=== PATIENT | female | born 1995 | race Two or more races ===

== ENCOUNTER 2018-11-04 09:53 | Emergency (ER) | payer OTHER ==
[2018-11-04] MEDS ORDERED: KETOROLAC TROMETHAMINE 60 MG/2 ML SDV IM ONE (11:11)
--- NOTE | 2018-11-04 11:18 | ER Document Report ---
HPI - HPI Patient complains to provider of: Low back pain Time Seen by Provider: 11/04/18 11:04 Onset: Yesterday Onset/Duration: Sudden, Persistent Quality of pain: Achy Severity: Severe Pain Level: 5 Context: This 23-year-old female presents emergency department with complaints of low back pain that started yesterday. She reports she was at the gym doing squats, when she felt something pop. She now has complaints of left-sided low back pain. Denies urinary bowel incontinence or retention. She denies paresthesia. Denies history of IV drug use or steroid use. Denies trauma. Reports it hurts more when she tries to stand to sitting position. Associated Symptoms: None Exacerbated by: Sitting, Standing, Movement Relieved by: Denies Similar symptoms previously: No Recently seen / treated by doctor: No - CONSTITUTIONAL Constitutional: DENIES: Fever, Chills - REPRODUCTIVE Reproductive: DENIES: : Past Medical History - General Information source: Patient Last Menstrual Period: just finished- denies - reports bc patch - Social History Smoking Status: Never Smoker Frequency of alcohol use: None Drug Abuse: None Occupation: stay at home mom Lives with: Family Family History: None Patient has suicidal ideation: No Patient has homicidal ideation: No - Medical History Medical History: Negative Renal/ Medical History: Denies: Hx Peritoneal Dialysis Surgical Hx: Negative - Immunizations Hx Diphtheria, Pertussis, Tetanus Vaccination: Yes - already received Vertical Provider Document - CONSTITUTIONAL Agree With Documented VS: Yes Exam Limitations: No Limitations General Appearance: WD/WN, Mild Distress - INFECTION CONTROL TRAVEL OUTSIDE OF THE [place] IN LAST 30 DAYS: No - HEENT HEENT: Atraumatic, Normocephalic - NECK Neck: Normal Inspection, Supple. negative: Lymphadenopathy-Left, Lymphadenopathy-Right - RESPIRATORY Respiratory: Breath Sounds Normal, No Respiratory Distress - CARDIOVASCULAR Cardiovascular: Regular Rate, Regular Rhythm - GI/ABDOMEN Gastrointestinal: Abdomen Soft, Abdomen Non-Tender - BACK Back: Normal Inspection - No obvious deformity good distal movement and s ensation no vertebral tenderness. Complains of left and right sided muscle pain upon palpation. Reports left is worse than right. No weakness goes from standing to sitting and sitting to standing very slowly. - MUSCULOSKELETAL/EXTREMETIES Musculoskeletal/Extremeties: PAULY WOODS - NEURO Level of Consciousness: Awake, Alert, Appropriate Motor/Sensory: No Motor Deficit - DERM Integumentary: Warm, Dry Course - Re-evaluation Re-evalutation: 11/04/18 11:34 23-year-old female with complaints of low back pain. Reports started hurting if she was doing squats at gym. She was instructed on muscle relaxers ibuprofen and Percocet for the acute pain. She was also instructed on the importance of follow-up with her primary care provider for referral to orthopedics as indicated. She verbalized understanding to all instructions. Low suspicion for any meningitis, fracture, expanding/ruptured AAA, cauda equina syndrome, epidural mass lesion/abscess, herniated disc causing severe spinal stenosis, or other systemic infection at this time. Patient is aware that this condition can change from initial presentation and that she needs monitor symptoms closely for any acute changes. Dictation of this chart was performed using voice recognition software; therefore, there may be some unintended grammatical errors. - Vital Signs Vital signs: Temp Pulse Resp BP Pulse Ox 98.8 F 125 H 19 141/93 H 96 11/04/18 09:58 11/04/18 09:58 11/04/18 09:58 11/04/18 09:58 11/04/18 09:58 Discharge - Discharge Clinical Impression: Low back pain Qualifiers: Chronicity: acute Back pain laterality: left Sciatica presence: without sciatica Qualified Code(s): M54.5 - Low back pain Condition: Stable Disposition: HOME, SELF-CARE Instructions: Use of [id number]-Gamgynv Ibuprofen ([facility]), Ice Packs ([facility]), Low Back Pain ([facility]), Muscle Relaxers ([facility]), Muscle Strain ([facility]), Oral Narcotic Medication ([facility]), Toradol Injection ([facility]) Additional Instructions: *You have been evaluated for back pain *Take medication as prescribed-take ibuprofen 800 mg every 8 hours. Take Per cocet for the acute pain. Take an [id number] stool softener to avoid constipation *Rest/Ice packs to low back-20 minutes on 20 minutes off *Follow up with a primary care provider for recheck within 1 week *Return to ED for worsening condition, changes, needs Monitor your blood pressure. Your blood pressure was elevated today. This may be because you were anxious, in pain or because you need medication. It is important to follow up with your primary care provider for full evaluation. Prescriptions: Cyclobenzaprine HCl [Flexeril 10 mg Tablet] 10 mg PO TID #15 tablet Oxycodone HCl/Acetaminophen [Percocet 5-325 mg Tablet] 1 tab PO ASDIR PRN #10 tablet PRN Reason: Forms: Elevated Blood Pressure Referrals: MARK PRETTY MD [ACTIVE STAFF] - Follow up as needed
[2018-11-04 12:11] VITALS: BP 146/76
== END 2018-11-04 12:12 | disposition home or self-care (01) ==
LOC: ER 09:53
DX: M79.18 Myalgia, other site (principal); Z79.3 Long term (current) use of hormonal contraceptives; M79.10 Myalgia, unspecified site
CPT/HCPCS: 99283; 96372; J1885

== ENCOUNTER 2019-01-30 02:53 | Emergency (ER) | payer OTHER ==
--- NOTE | 2019-01-30 04:10 | RADIOLOGY REPORT (SQ) ---
Left ankle three view on 01/30/2019 at 3:11 AM CLINICAL INDICATION: Rolled ankle, lateral ankle pain COMPARISON: None FINDINGS: Soft tissue swelling is noted around the lateral malleolus. Bone island is noted in the distal tibia. The ankle mortise is intact. Visualized joints are well aligned. There are no fractures. No other bony abnormality is noted. IMPRESSION: No acute abnormality.
[2019-01-30] MEDS ORDERED: IBUPROFEN 800 MG TABLET PO ONE (05:44)
--- NOTE | 2019-01-30 05:45 | ER Document Report ---
HPI - HPI Time Seen by Provider: 01/30/19 05:17 Pain Level: 4 Context: Patient is a 23-year-old female that comes to the emergency department for chief complaint of left ankle injury. 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 She inverted her ankle, she states that when she took her boot off it started hurting more and became swollen. She denies any other injuries. She denies , daily medications, or any other concerns. - CONSTITUTIONAL Constitutional: DENIES: Fever, Chills - REPRODUCTIVE LMP: 01/21 Reproductive: DENIES: : - DERM Skin Color: Normal Past Medical History - General Information source: Patient - Social History Smoking Status: Never Smoker Frequency of alcohol use: None Drug Abuse: None Lives with: Family Family History: None Patient has suicidal ideation: No Patient has homicidal ideation: No - Medical History Medical History: Negative Renal/ Medical History: Denies: Hx Peritoneal Dialysis Surgical Hx: Negative - Immunizations Immunizations up to date: Yes Hx Diphtheria, Pertussis, Tetanus Vaccination: Yes - already received Vertical Provider Document - CONSTITUTIONAL General Appearance: WD/WN, No Apparent Distress - INFECTION CONTROL TRAVEL OUTSIDE OF THE [place] IN LAST 30 DAYS: No - HEENT HEENT: Atraumatic, Normocephalic - NECK Neck: Normal Inspection - RESPIRATORY Respiratory: Breath Sounds Normal, No Respiratory Distress - CARDIOVASCULAR Cardiovascular: Regular Rate, Regular Rhythm - GI/ABDOMEN Gastrointestinal: Abdomen Soft, Abdomen Non-Tender. negative: Abdomen Tender - BACK Back: Normal Inspection - MUSCULOSKELETAL/EXTREMETIES Musculoskeletal/Extremeties: MAEW, FROM, Tender - There is soft tissue swelling to the lateral malleolus of the left ankle. Pain with palpation over this area. Pain with range of motion of the ankle. No wounds. Normal capillary refill and sensation, normal dorsalis pedis, normal leg, knee, hip exam. Normal extremities otherwise. - NEURO Level of Consciousness: Awake, Alert, Appropriate Motor/Sensory: No Motor Deficit, No Sensory Deficit - DERM Integumentary: Warm, Dry, No Rash Course - Re-evaluation Re-evalutation: Patient with soft tissue swelling over the left lateral malleolus consistent with her injury, pain with palpation over the ATF distribution. X-rays negative for fracture, no concerning findings otherwise, consistent with sprain. Discussed treatment, follow-up, return precautions. Patient states understanding and agreement. - Vital Signs Vital signs: Temp Pulse Resp BP Pulse Ox 98.2 F 105 H 18 136/70 H 98 01/30/19 03:01 01/30/19 03:01 01/30/19 03:01 01/30/19 03:01 01/30/19 03:01 Procedures - Immobilization Left ankle Pre-Proc Neuro Vasc Exam: Normal Immobilizer type: Pankaj wrap, Ankle stirrup Performed by: PCT Post-Proc Neuro Vasc Exam: Normal Alignment checked and good: Yes Discharge - Discharge Clinical Impression: Left ankle swelling Left ankle injury Qualifiers: Encounter type: initial encounter Qualified Code(s): S99.912A - Unspecified injury of left ankle, initial encounter Condition: Stable Disposition: HOME, SELF-CARE Additional Instructions: There is soft tissue swelling in your evaluation is consistent with a sprain, probably injury of the ATF ligament in your foot. There is no fracture seen. Recommendation is to wear the Pankaj wrap and ankle stirrup, use the crutches, take the anti-inflammatory as prescribed, elevate your foot whenever possible, ice 3- 4 times a day. Do this for the next 2 to 3 days. Symptoms should resolve. After swelling and pain resolves resume normal activity. Follow-up with primary care for additional management. Return for any concerning symptoms including severe worsening swelling or pain. Prescriptions: Ibuprofen [Ibu] 800 mg PO TID PRN #30 tablet PRN Reason: Forms: Return to Work Referrals: AL CHAVEZ PA [NO LOCAL MD] - Follow up as needed
[2019-01-30 06:43] VITALS: BP 120/68
== END 2019-01-30 06:40 | disposition home or self-care (01) ==
LOC: ER 02:53
DX: S99.912A Unspecified injury of left ankle, initial encounter (principal); M25.472 Effusion, left ankle; X50.0XXA Overexertion from strenuous movement or load, initial encounter
CPT/HCPCS: 99283; 73610; L1902